=== PATIENT | female | born 2000 | race Caucasian/White ===

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

== ENCOUNTER 2021-01-23 18:10 | Emergency (ER) | payer MEDICAID ==
[~2021-01-23] VITALS: Ht 160 cm; Wt 79.4 kg
[2021-01-23 18:16] VITALS: BP 110/77
[2021-01-23] MEDS ORDERED: IBUP-2213 PO (18:33)
[2021-01-23] MEDS ORDERED: PENI500T20 PO (18:33)
--- NOTE | 2021-01-23 18:47 | NUR ---
NO NURSING INTERVETIONS PROVIDED
--- NOTE | 2021-01-23 18:48 | NUR ---
Patient discharged with v/s stable. Written and verbal after care instructions given and explained. Patient alert, oriented and verbalized understanding of instructions. Ambulatory with steady gait. All questions addressed prior to discharge. ID band removed. Patient advised to follow up with PMD. Rx of IBUPROFEN 600MG AND PENICILLIN V POTASSIUM given. Patient educated on indication of medication including possible reaction and side effects. Opportunity to ask questions provided and answered.
== END 2021-01-23 18:48 | disposition home or self-care (01) ==
LOC: MED 18:10
DX: J02.9 Acute pharyngitis, unspecified (principal); Z20.822 Contact with and (suspected) exposure to COVID-19; J45.909 Unspecified asthma, uncomplicated; Z79.1 Long term (current) use of non-steroidal anti-inflammatories (NSAID); Z79.2 Long term (current) use of antibiotics; Z88.8 Allergy status to other drugs, medicaments and biological substances
CPT/HCPCS: 99283; U0003

== ENCOUNTER 2021-05-27 17:24 | Emergency (ER) | payer MEDICAID ==
[~2021-05-27] VITALS: Ht 160 cm; Wt 70.3 kg
[~2021-05-27 17:24] MED LIST changes: +IBUP-2213 PO; +PENI500T20 PO
[2021-05-27 19:19] VITALS: BP 127/90
--- NOTE | 2021-05-27 19:21 | NUR ---
TO LOBBY A/W BED VIA W/C
[2021-05-27] MEDS ORDERED: HYDROcodone/APAP 5/325 MG 1 TAB TAB PO ONE (19:30)
[2021-05-27] MEDS ORDERED: IBUPROFEN 600 MG TAB PO ONE (19:30)
[2021-05-27] MEDS ORDERED: IBUP-2213 PO (19:53)
[2021-05-27] MEDS ORDERED: ACET-10509 PO (19:53)
[2021-05-27] MEDS ORDERED: IBUPROFEN 600 MG TAB ONE (20:33)
[2021-05-27] MEDS ORDERED: HYDROcodone/APAP 5/325 MG 1 TAB TAB ONE (20:34)
[2021-05-27 20:45] VITALS: BP 127/90
--- NOTE | 2021-05-28 00:25 | NUR ---
Patient discharged with v/s stable. Written and verbal after care instructions given and explained. Patient verbalized understanding. Ambulatory with steady gait. All questions addressed prior to discharge. Advised to follow up with PMD.
== END 2021-05-27 20:45 | disposition home or self-care (01) ==
LOC: MED 17:24
DX: S80.11XA Contusion of right lower leg, initial encounter (principal); J45.909 Unspecified asthma, uncomplicated; Z79.899 Other long term (current) drug therapy; Z88.8 Allergy status to other drugs, medicaments and biological substances; W19.XXXA Unspecified fall, initial encounter; Y93.89 Activity, other specified; Y92.89 Other specified places as the place of occurrence of the external cause; Y99.8 Other external cause status
CPT/HCPCS: 73590; 99283

== ENCOUNTER 2021-12-19 16:41 | Emergency (ER) | payer MEDICAID ==
[~2021-12-19] VITALS: Ht 160 cm; Wt 61.2 kg
[~2021-12-19 16:41] MED LIST changes: +ACET-10509 PO
[2021-12-19 16:59] VITALS: BP 115/75
--- NOTE | 2021-12-19 17:05 | NUR ---
DR STEPHENS EVALUATING PT AT THIS TIME
--- NOTE | 2021-12-19 17:15 | NUR ---
PT WALKED WITH STEADY GAIT TO BED 7
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
--- NOTE | 2021-12-19 17:33 | NUR ---
PT AMBULATORY TO RESTROOM
--- NOTE | 2021-12-19 17:50 | NUR ---
XRAY AT BEDSIDE
--- NOTE | 2021-12-19 18:03 | NUR ---
ER AT BEDSIDE FOR EVAL
--- NOTE | 2021-12-19 18:03 | NUR ---
PT SENT TO CT WITH TECH VIA W/C
--- NOTE | 2021-12-19 18:06 | NUR ---
PT REQUESTING BREATHING TREATMENT AND MOTHER ALSO DEMANDING BREATHING TREATMENT. DR STEPHENS MADE AWARE AND WENT TO BEDSIDE FOR EVALUATION. SPO2 98% RA.
--- NOTE | 2021-12-19 18:06 | NUR ---
PATIENT TAKEN FOR CT SCAN VIA WHEELCHAIR
[2021-12-19] MEDS ORDERED: IBUPROFEN 600 MG TAB PO ONE (18:30)
[2021-12-19] MEDS ORDERED: ACETAMINOPHEN EXTRA STRENGTH 500 MG TAB PO ONE (18:30)
--- NOTE | 2021-12-19 19:30 | NUR ---
REPORT GIVEN TO SARAH BEAN. ALL QUESTIONS ANSWERED. TRANSFER OF CARE AT THIS TIME
--- NOTE | 2021-12-19 20:00 | NUR ---
ALL RESULTS BACK AND NOTED BY ERMD AND FOR D/C
[2021-12-19] MEDS ORDERED: IBUP-2213 PO (20:11)
[2021-12-19] MEDS ORDERED: ACET-9882 PO (20:11)
[2021-12-19 20:20] VITALS: BP 120/79
--- NOTE | 2021-12-19 20:20 | NUR ---
Patient discharged with v/s stable. Written and verbal after care instructions given and explained. Patient alert, oriented and verbalized understanding of instructions. Ambulatory with steady gait. All questions addressed prior to discharge. ID band removed. Patient advised to follow up with PMD. Rx of TYLENOL, IBUPROFEN given. Patient educated on indication of medication including possible reaction and side effects. Opportunity to ask questions provided and answered.
== END 2021-12-19 20:20 | disposition home or self-care (01) ==
LOC: MED 16:41
DX: S06.0X9A Concussion with loss of consciousness of unspecified duration, initial encounter (principal); M79.601 Pain in right arm; V49.88XA Car occupant (driver) (passenger) injured in other specified transport accidents, initial encounter; Y93.89 Activity, other specified; Y92.89 Other specified places as the place of occurrence of the external cause; Y99.8 Other external cause status
CPT/HCPCS: 70450; 70486; 73030; 81002; 81025; 99284; Q0092

== ENCOUNTER 2024-02-05 18:09 | Emergency (ER) | payer MEDICAID, OTHER ==
[~2024-02-05] VITALS: Ht 157.5 cm; Wt 68.0 kg
[~2024-02-05 18:09] MED LIST changes: -ACET-10509 PO; +ACET-9882 PO; +ACET500T99 PO
[2024-02-05 18:22] VITALS: BP 140/90; PULSE 100; RESP 18; TEMP 97.9; O2SAT 100
[2024-02-05 19:56] VITALS: BP 130/92; PULSE 76; RESP 14; O2SAT 99
[2024-02-05 20:13] LABS: BASOPHILS # (AUTO) 0.1 K/uL (0.00-0.22); BASOPHILS % (AUTO) 0.7 % (0.0-2.0); EOSINOPHILS # (AUTO) 0.2 K/uL (0-0.4); EOSINOPHILS % (AUTO) 2.3 % (0.0-4.0); HEMATOCRIT 38.6 % (36-48); HEMOGLOBIN 12.6 g/dL (12.0-16.0); LYMPHOCYTES # (AUTO) 3.1 K/uL (2.5-16.5); LYMPHOCYTES % (AUTO) 33.5 % (20.5-51.1); MEAN CORPUSCULAR HEMOGLOBIN 26 pg (27-31); MEAN CORPUSCULAR HGB CONC 33 g/dL (33-37); MEAN CORPUSCULAR VOLUME 78.2 fL (80-94); MONOCYTES # (AUTO) 0.5 K/uL (0.8-1.0); MONOCYTES % (AUTO) 5.7 % (1.7-9.3); NEUTROPHILS # (AUTO) 5.3 K/uL (1.8-7.7); NEUTROPHILS % (AUTO) 57.8 % (42.2-75.2); PLATELET COUNT (AUTO) 292 K/uL (140-450); RED BLOOD CELL COUNT(AUTO) 4.94 MIL/uL (4.20-5.40); RED CELL DISTRIBUTION WIDTH 16.3 % (11.6-13.7); WHITE BLOOD COUNT (AUTO) 9.2 K/uL (4.8-10.8)
[2024-02-05 20:25] LABS: ANION GAP 12.4 (8-16); CALCIUM 9.3 mg/dL (8.5-10.1); CARBON DIOXIDE 29.3 mmol/L (21-32); CREATININE 0.7 mg/dL (0.6-1.3); POTASSIUM 3.7 mmol/L (3.5-5.1)
[2024-02-05 20:44] LABS: APPEARANCE,URINE CLEAR (CLEAR); BILIRUBIN,URINE NEGATIVE (NEGATIVE); BLOOD, URINE NEGATIVE (NEGATIVE); COLOR,URINE YELLOW (YELLOW); LEUKOCYTE ESTERASE ,URINE TRACE (NEGATIVE); NITRITE, URINE POSITIVE (NEGATIVE); PH,URINE 6.5 (5.0-9.0); PROTEIN,URINE NEGATIVE (NEGATIVE); UGLUCOSE NEGATIVE (NEGATIVE); UROBILINOGEN,URINE 0.2 EU/dL (0.2 - 1)
[2024-02-05 20:55] LABS: BACTERIA,URINE FEW /HPF (None Seen); RBC,URINE 0-5 /HPF (0-5); SQUAMOUS EPITHELIAL CELL,UR 0-3 (FEW) /LPF (0-3 (FEW)); WBC,URINE 0-5 /HPF (0-5)
== END 2024-02-05 21:11 | disposition home or self-care (01) ==
LOC: MED 18:09
DX: E16.2 Hypoglycemia, unspecified (principal); J45.909 Unspecified asthma, uncomplicated; Z79.1 Long term (current) use of non-steroidal anti-inflammatories (NSAID); Z79.2 Long term (current) use of antibiotics; Z79.899 Other long term (current) drug therapy; Z88.8 Allergy status to other drugs, medicaments and biological substances
CPT/HCPCS: 36415; 80048; 81001; 81025; 84443; 85025; 99283